=== PATIENT | male | born 1985 | race Asian ===

== ENCOUNTER 2022-09-29 03:23 | Inpatient (IN) | payer MEDICAID ==
[~2022-09-29] VITALS: Ht 172.7 cm; Wt 136.2 kg
[2022-09-29] MEDS ORDERED: IPRATROPIUM BROMIDE 0.5 MG/2.5 ML NEB SOLUTION NEB ONE (03:45)
[2022-09-29] MEDS ORDERED: PredniSONE 20 MG TABLET PO ONE (03:45)
[2022-09-29] MEDS ORDERED: ALBUTEROL SULFATE HFA 90 MCG/PUFF 8 GM INHALER IH ONE (03:45)
[2022-09-29] MEDS ORDERED: ALBUTEROL SULFATE 2.5 MG/0.5 ML NEB SOLUTION NEB ONE (03:45)
[2022-09-29] MEDS ORDERED: ALBU18HF12 IH (03:47)
[2022-09-29] MEDS ORDERED: LOSA-381 PO (03:47)
[2022-09-29] MEDS ORDERED: BUME1TAB6 PO (03:47)
[2022-09-29] MEDS ORDERED: METO-408 PO (03:47)
[2022-09-29] MEDS ORDERED: PRED-554 PO (04:07)
[2022-09-29 04:45] LABS: COVID AG,FIA SOURCE NASOPHARYNGEAL
[2022-09-29] MEDS ORDERED: BUMETANIDE 0.25 MG/ML 4 ML VIAL IVP ONE (04:45)
[2022-09-29 04:49] LABS: BASOPHILS % (AUTO) 0.9 % (0.0-2.0); EOSINOPHILS % (AUTO) 1.6 % (1.0-6.0); HEMATOCRIT 45.9 % (41-53); HEMOGLOBIN 14.8 g/dL (13.5-17.5); LYMPHOCYTES # (AUTO) 1.4 K/uL (1.0-4.8); LYMPHOCYTES % (AUTO) 14.7 % (22.0-44.0); MEAN CORPUSCULAR HEMOGLOBIN 27.2 pg (26.0-34.0); MEAN CORPUSCULAR HGB CONC 32.2 G/dL (31.0-37.0); MEAN CORPUSCULAR VOLUME 85 fL (80-100); MONOCYTES % (AUTO) 9.9 % (2.0-9.0); NEUTROPHILS # (AUTO) 7.2 K/uL (1.8-7.7); NEUTROPHILS % (AUTO) 72.9 % (40.0-70.0); PLATELET COUNT (AUTO) 333 K/uL (150-450); RED BLOOD CELL COUNT(AUTO) 5.44 MIL/uL (4.50-5.90); RED CELL DISTRIBUTION WIDTH 15.8 % (11.5-14.5)
[2022-09-29 04:59] LABS: ANION GAP 12 mmol/L (8-16); CALCIUM, TOTAL 9.1 mg/dL (8.8-10.5); CARBON DIOXIDE 25 mmol/L (22-29); CHLORIDE 102 mmol/L (98-107); GLOMERULAR FILTR. RATE CALC 38 mL/min (>60); GLUCOSE,RANDOM 127 mg/dL (70-110); POTASSIUM 3.9 mmol/L (3.5-5.1); SODIUM SERUM 139 mmol/L (136-145)
[2022-09-29 05:01] LABS: INR 1.2 (0.9-1.1)
[2022-09-29 05:05] LABS: INFLUENZA TYPE A NEGATIVE FOR TYPE A (NEGATIVE); INFLUENZA TYPE B NEGATIVE FOR TYPE B (NEGATIVE)
[2022-09-29 05:06] LABS: ALANINE AMINOTRANSFERASE 22 U/L (12-78); ALBUMIN 3.2 g/dL (3.4-5.0); ALKALINE PHOSPHATASE 81 U/L (46-116); ASPARTATE AMINOTRANSFERASE 24 U/L (15-37); BILIRUBIN,TOTAL 1.2 mg/dL (0.1-1.0); CREATINE KINASE, TOTAL ONLY 152 U/L (39-308); TOTAL PROTEIN, SERUM 7.3 g/dL (6.4-8.2)
[2022-09-29 05:10] LABS: B-TYPE NATRIURETIC PEPTIDE 862 pg/mL (0-100)
[2022-09-29] MEDS ORDERED: ASPIRIN 325 MG TABLET PO ONE (05:15)
[2022-09-29] MEDS ORDERED: ONDANSETRON HCL 4 MG/2 ML VIAL IVP PRN (05:30)
[2022-09-29] MEDS ORDERED: 0.9% SODIUM CHLORIDE 10 ML SYRINGE IVP PRN (05:30)
[2022-09-29] MEDS ORDERED: ACETAMINOPHEN 325 MG TABLET PO PRN (05:30)
[2022-09-29 06:38] LABS: APPEARANCE,URINE CLEAR (CLEAR); BILIRUBIN,URINE NEGATIVE (NEGATIVE); GLUCOSE, URINE (UA) NEGATIVE (NEGATIVE); KETONES,URINE NEGATIVE (NEGATIVE); LEUKOCYTE ESTERASE ,URINE NEGATIVE (NEGATIVE); NITRATE,URINE NEGATIVE (NEGATIVE); OCCULT BLOOD,URINE LARGE (NEGATIVE); PROTEIN,URINE 300-600,SEE CONFIRM mg/dL (NEGATIVE); SPECIFIC GRAVITIY, URINE 1.014 (1.003-1.030); UROBILINOGEN,URINE <=1.0 mg/dL (<=1.0)
[2022-09-29 06:43] LABS: AMPHET/METH SCREEN,URINE POSITIVE (NEGATIVE); BARBITURATE SCREEN, URINE NEGATIVE (NEGATIVE); BENZODIAZEPINES SCREEN,URINE NEGATIVE (NEGATIVE); CANNABINOID SCREEN,URINE NEGATIVE (NEGATIVE); COCAINE SCREEN,URINE NEGATIVE (NEGATIVE); METHADONE SCREEN, URINE NEGATIVE (NEGATIVE); OPIATE SCREEN,URINE NEGATIVE (NEGATIVE); PHENCYCLIDINE SCREEN,URINE NEGATIVE (NEGATIVE)
[2022-09-29 06:54] LABS: SULFOSALICYLIC ACID,URINE 3+ (Negative)
[2022-09-29 06:55] LABS: BACTERIA,URINE None Seen /HPF (None Seen); SQUAMOUS EPITHELIAL CELL,UR Few /LPF (None Seen); WBC,URINE None Seen /HPF (0-5)
[2022-09-29 10:30] VITALS: BP 148/92
[2022-09-29 15:26] VITALS: BP 158/79
[2022-09-29 19:42] VITALS: BP 132/87
[2022-09-29] MEDS ORDERED: GuaiFENesin/D-METHORPHAN [SUGAR-FREE] 200-20MG/10 ML SYRUP UDCUP PO PRN (20:00)
[2022-09-29] MEDS: NICOTINE 14 MG/24 HOUR PATCH TD SCH (22:29)
[2022-09-29 23:14] VITALS: BP 134/81
[2022-09-30 04:55] VITALS: BP 133/100
[2022-09-30] MEDS ORDERED: BUMETANIDE 0.25 MG/ML 4 ML VIAL IVP ONE (05:45)
[2022-09-30] MEDS ORDERED: BISACODYL 10 MG RECTAL RECTAL SUPPOSITORY PR PRN (05:45)
[2022-09-30] MEDS ORDERED: ALBUTEROL SULFATE 2.5 MG/0.5 ML NEB SOLUTION NEB PRN (05:45)
[2022-09-30] MEDS ORDERED: ACETAMINOPHEN 325 MG TABLET PO PRN (05:45)
[2022-09-30] MEDS ORDERED: MAGNESIUM HYDROXIDE SUSPENSION 30 ML UDCUP PO PRN (05:45)
[2022-09-30] MEDS ORDERED: ZOLPIDEM TARTRATE 5 MG TABLET PO PRN (05:45)
[2022-09-30] MEDS ORDERED: ONDANSETRON HCL 4 MG/2 ML VIAL IVP PRN (05:45)
[2022-09-30] MEDS ORDERED: IPRATROPIUM BROMIDE 0.5 MG/2.5 ML NEB SOLUTION NEB PRN (05:45)
[2022-09-30] MEDS ORDERED: MORPHINE SULFATE 2 MG/ML SYRINGE IVP PRN (05:45)
[2022-09-30] MEDS: MethylPREDNISolone SOD SUCC 40 MG/ML VIAL IVP SCH ×4 (05:57→23:21)
[2022-09-30 07:03] LABS: BASOPHILS % (AUTO) 0.8 % (0.0-2.0); EOSINOPHILS % (AUTO) 1.4 % (1.0-6.0); HEMOGLOBIN 14.3 g/dL (13.5-17.5); LYMPHOCYTES # (AUTO) 1.6 K/uL (1.0-4.8); LYMPHOCYTES % (AUTO) 18.8 % (22.0-44.0); MEAN CORPUSCULAR HGB CONC 31.9 G/dL (31.0-37.0); MEAN CORPUSCULAR VOLUME 85 fL (80-100); MONOCYTES # (AUTO) 0.9 K/uL (0.1-1.0); MONOCYTES % (AUTO) 10.6 % (2.0-9.0); NEUTROPHILS # (AUTO) 5.8 K/uL (1.8-7.7); NEUTROPHILS % (AUTO) 68.4 % (40.0-70.0); PLATELET COUNT (AUTO) 350 K/uL (150-450); RED BLOOD CELL COUNT(AUTO) 5.32 MIL/uL (4.50-5.90); RED CELL DISTRIBUTION WIDTH 15.6 % (11.5-14.5)
[2022-09-30 07:28] LABS: BILIRUBIN,TOTAL 0.8 mg/dL (0.1-1.0); CALCIUM, TOTAL 8.8 mg/dL (8.8-10.5); CREATININE 1.96 mg/dL (0.60-1.30); POTASSIUM 3.6 mmol/L (3.5-5.1); TOTAL PROTEIN, SERUM 7.2 g/dL (6.4-8.2)
[2022-09-30] MEDS: HYDROCODONE/ACETAMINOPHEN 5-325 MG TABLET PO PRN ×4 (08:17→23:21)
[2022-09-30] MEDS: HEPARIN SODIUM,PORCINE 5,000 UNITS/ML VIAL SQ SCH ×3 (08:17→23:21)
[2022-09-30] MEDS: LOSARTAN POTASSIUM 25 MG TABLET PO SCH (08:18)
[2022-09-30] MEDS: DOCUSATE SODIUM 100 MG CAPSULE PO SCH ×2 (08:18→21:17)
[2022-09-30] MEDS: BUMETANIDE 0.25 MG/ML 4 ML VIAL IVP SCH ×2 (08:18→22:59)
[2022-09-30] MEDS: NICOTINE 14 MG/24 HOUR PATCH TD SCH (08:18)
[2022-09-30] MEDS: PANTOPRAZOLE SODIUM 40 MG/VIAL IVP SCH (08:18)
[2022-09-30] MEDS: METOPROLOL SUCCINATE 25 MG ER TABLET PO SCH (08:18)
[2022-09-30 08:29] VITALS: BP 138/90
[2022-09-30 11:27] VITALS: BP 125/91
[2022-09-30 15:40] VITALS: BP 129/92
[2022-09-30] MEDS: GuaiFENesin/D-METHORPHAN [SUGAR-FREE] 200-20MG/10 ML SYRUP UDCUP PO PRN ×2 (17:57→23:23)
[2022-09-30 19:35] VITALS: BP 121/55
[2022-10-01 00:04] VITALS: BP 125/90
[2022-10-01 05:01] VITALS: BP 128/83
[2022-10-01] MEDS: MethylPREDNISolone SOD SUCC 40 MG/ML VIAL IVP SCH ×4 (05:32→23:49)
[2022-10-01 07:26] VITALS: BP 132/82
[2022-10-01] MEDS: HYDROCODONE/ACETAMINOPHEN 5-325 MG TABLET PO PRN ×4 (08:25→23:31)
[2022-10-01] MEDS: PANTOPRAZOLE SODIUM 40 MG/VIAL IVP SCH (08:26)
[2022-10-01] MEDS: DOCUSATE SODIUM 100 MG CAPSULE PO SCH ×2 (08:26→20:29)
[2022-10-01] MEDS: METOPROLOL SUCCINATE 25 MG ER TABLET PO SCH (08:26)
[2022-10-01] MEDS: LOSARTAN POTASSIUM 25 MG TABLET PO SCH (08:26)
[2022-10-01] MEDS: BUMETANIDE 0.25 MG/ML 4 ML VIAL IVP SCH ×2 (08:26→20:29)
[2022-10-01] MEDS: HEPARIN SODIUM,PORCINE 5,000 UNITS/ML VIAL SQ SCH ×3 (08:26→23:49)
[2022-10-01] MEDS: NICOTINE 14 MG/24 HOUR PATCH TD SCH (08:26)
[2022-10-01] MEDS: GuaiFENesin/D-METHORPHAN [SUGAR-FREE] 200-20MG/10 ML SYRUP UDCUP PO PRN ×2 (08:27→20:28)
[2022-10-01 11:34] VITALS: BP 128/87
[2022-10-01 15:18] VITALS: BP 126/82
[2022-10-01 19:35] VITALS: BP 124/84
[2022-10-01 21:21] LABS: BASOPHILS % (AUTO) 0.9 % (0.0-2.0); EOSINOPHILS % (AUTO) 0 % (1.0-6.0); HEMATOCRIT 44.7 % (41-53); HEMOGLOBIN 14.1 g/dL (13.5-17.5); LYMPHOCYTES # (AUTO) 0.4 K/uL (1.0-4.8); LYMPHOCYTES % (AUTO) 2.6 % (22.0-44.0); MEAN CORPUSCULAR HEMOGLOBIN 26.8 pg (26.0-34.0); MEAN CORPUSCULAR HGB CONC 31.5 G/dL (31.0-37.0); MEAN CORPUSCULAR VOLUME 85 fL (80-100); MONOCYTES # (AUTO) 0.6 K/uL (0.1-1.0); MONOCYTES % (AUTO) 3.5 % (2.0-9.0); PLATELET COUNT (AUTO) 358 K/uL (150-450); RED BLOOD CELL COUNT(AUTO) 5.26 MIL/uL (4.50-5.90)
[2022-10-01 21:31] LABS: CALCIUM, TOTAL 8.7 mg/dL (8.8-10.5); CREATININE 2.23 mg/dL (0.60-1.30); POTASSIUM 4.1 mmol/L (3.5-5.1)
[2022-10-01 21:37] LABS: ALBUMIN 3.2 g/dL (3.4-5.0); BILIRUBIN,TOTAL 0.7 mg/dL (0.1-1.0); TOTAL PROTEIN, SERUM 7.5 g/dL (6.4-8.2)
[2022-10-01] MEDS ORDERED: SODIUM CHLORIDE 0.9% 50 ML ONE (23:27)
[2022-10-01] MEDS: CefTRIAXone 1 GM/DEXTROSE 50 ML IV SCH (23:33)
[2022-10-02 00:15] VITALS: BP 100/66
[2022-10-02 04:40] VITALS: BP 108/59
[2022-10-02] MEDS: MethylPREDNISolone SOD SUCC 40 MG/ML VIAL IVP SCH ×4 (05:25→23:19)
[2022-10-02 07:43] VITALS: BP 127/80
[2022-10-02] MEDS: PANTOPRAZOLE SODIUM 40 MG/VIAL IVP SCH (08:17)
[2022-10-02] MEDS: HEPARIN SODIUM,PORCINE 5,000 UNITS/ML VIAL SQ SCH ×3 (08:17→23:19)
[2022-10-02] MEDS: HYDROCODONE/ACETAMINOPHEN 5-325 MG TABLET PO PRN ×4 (08:18→23:19)
[2022-10-02] MEDS: DOCUSATE SODIUM 100 MG CAPSULE PO SCH ×2 (08:18→19:35)
[2022-10-02] MEDS: METOPROLOL SUCCINATE 25 MG ER TABLET PO SCH (08:18)
[2022-10-02] MEDS: BUMETANIDE 1 MG TABLET PO SCH (08:18)
[2022-10-02] MEDS: LOSARTAN POTASSIUM 25 MG TABLET PO SCH (08:18)
[2022-10-02] MEDS: NICOTINE 14 MG/24 HOUR PATCH TD SCH (08:19)
[2022-10-02] MEDS: GuaiFENesin/D-METHORPHAN [SUGAR-FREE] 200-20MG/10 ML SYRUP UDCUP PO PRN ×3 (08:20→19:36)
[2022-10-02 10:56] VITALS: BP 124/78
[2022-10-02 15:08] VITALS: BP 128/80
[2022-10-02 15:48] LABS: EOSINOPHILS % (AUTO) 0.2 % (1.0-6.0); HEMATOCRIT 45.7 % (41-53); HEMOGLOBIN 14.3 g/dL (13.5-17.5); LYMPHOCYTES # (AUTO) 0.4 K/uL (1.0-4.8); LYMPHOCYTES % (AUTO) 2.4 % (22.0-44.0); MEAN CORPUSCULAR HEMOGLOBIN 26.6 pg (26.0-34.0); MEAN CORPUSCULAR HGB CONC 31.4 G/dL (31.0-37.0); MEAN CORPUSCULAR VOLUME 85 fL (80-100); MONOCYTES # (AUTO) 0.6 K/uL (0.1-1.0); MONOCYTES % (AUTO) 3.5 % (2.0-9.0); NEUTROPHILS # (AUTO) 16.7 K/uL (1.8-7.7); NEUTROPHILS % (AUTO) 93.9 % (40.0-70.0); PLATELET COUNT (AUTO) 218 K/uL (150-450); RED BLOOD CELL COUNT(AUTO) 5.39 MIL/uL (4.50-5.90); RED CELL DISTRIBUTION WIDTH 16.3 % (11.5-14.5)
[2022-10-02 16:02] LABS: CALCIUM, TOTAL 8.8 mg/dL (8.8-10.5); CREATININE 2.18 mg/dL (0.60-1.30); POTASSIUM 4.2 mmol/L (3.5-5.1)
[2022-10-02 16:06] LABS: BILIRUBIN,TOTAL 0.7 mg/dL (0.1-1.0)
[2022-10-02 19:55] VITALS: BP 121/74
[2022-10-02] MEDS: CefTRIAXone 1 GM/DEXTROSE 50 ML IV SCH (23:19)
[2022-10-03 00:33] VITALS: BP 139/78
[2022-10-03 01:44] LABS: APPEARANCE,URINE CLEAR (CLEAR); BILIRUBIN,URINE NEGATIVE (NEGATIVE); GLUCOSE, URINE (UA) NEGATIVE (NEGATIVE); KETONES,URINE NEGATIVE (NEGATIVE); LEUKOCYTE ESTERASE ,URINE NEGATIVE (NEGATIVE); NITRATE,URINE NEGATIVE (NEGATIVE); OCCULT BLOOD,URINE NEGATIVE (NEGATIVE); PH,URINE 5.5 (5.0-8.0); PROTEIN,URINE 30-70 mg/dL (NEGATIVE); UROBILINOGEN,URINE <=1.0 mg/dL (<=1.0)
[2022-10-03 02:16] LABS: CREATININE,URINE RANDOM 105.3 mg/dL (30.0-125.0); PROTEIN,URINE RANDOM 64 mg/dL (0-11.9); SODIUM,URINE RANDOM 24 mmol/l (20-110); UREA NITROGEN,URINE RANDOM 1278 mg/dL (350-1000)
[2022-10-03 05:02] VITALS: BP 114/87
[2022-10-03] MEDS: MethylPREDNISolone SOD SUCC 40 MG/ML VIAL IVP SCH ×3 (05:50→18:18)
[2022-10-03 07:09] LABS: BASOPHILS % (AUTO) 0.1 % (0.0-2.0); EOSINOPHILS % (AUTO) 0 % (1.0-6.0); HEMATOCRIT 46.2 % (41-53); HEMOGLOBIN 14.5 g/dL (13.5-17.5); LYMPHOCYTES # (AUTO) 0.5 K/uL (1.0-4.8); MEAN CORPUSCULAR HEMOGLOBIN 26.6 pg (26.0-34.0); MEAN CORPUSCULAR HGB CONC 31.4 G/dL (31.0-37.0); MEAN CORPUSCULAR VOLUME 85 fL (80-100); MONOCYTES # (AUTO) 0.5 K/uL (0.1-1.0); MONOCYTES % (AUTO) 2.8 % (2.0-9.0); NEUTROPHILS # (AUTO) 15.8 K/uL (1.8-7.7); PLATELET COUNT (AUTO) 358 K/uL (150-450); RED BLOOD CELL COUNT(AUTO) 5.45 MIL/uL (4.50-5.90); RED CELL DISTRIBUTION WIDTH 16.2 % (11.5-14.5)
[2022-10-03 07:14] LABS: NEUTROPHILS % (AUTO) 94.1 % (40.0-70.0)
[2022-10-03 07:37] LABS: ALBUMIN 3.1 g/dL (3.4-5.0); BILIRUBIN,TOTAL 0.6 mg/dL (0.1-1.0); CALCIUM, TOTAL 8.5 mg/dL (8.8-10.5); CREATININE 1.87 mg/dL (0.60-1.30); POTASSIUM 4.3 mmol/L (3.5-5.1); TOTAL PROTEIN, SERUM 7.2 g/dL (6.4-8.2)
[2022-10-03 08:00] LABS: MAGNESIUM 2.6 mg/dL (1.80-2.40); PHOSPHORUS 4.1 mg/dL (2.5-4.9)
[2022-10-03] MEDS: HEPARIN SODIUM,PORCINE 5,000 UNITS/ML VIAL SQ SCH ×3 (08:00→23:29)
[2022-10-03 08:16] VITALS: BP 113/75
[2022-10-03] MEDS: NICOTINE 14 MG/24 HOUR PATCH TD SCH (08:17)
[2022-10-03] MEDS: LOSARTAN POTASSIUM 25 MG TABLET PO SCH (08:19)
[2022-10-03] MEDS: DOCUSATE SODIUM 100 MG CAPSULE PO SCH ×2 (08:19→19:43)
[2022-10-03] MEDS: BUMETANIDE 1 MG TABLET PO SCH (08:19)
[2022-10-03] MEDS: PANTOPRAZOLE SODIUM 40 MG/VIAL IVP SCH (08:20)
[2022-10-03] MEDS: METOPROLOL SUCCINATE 25 MG ER TABLET PO SCH (08:20)
[2022-10-03] MEDS: GuaiFENesin/D-METHORPHAN [SUGAR-FREE] 200-20MG/10 ML SYRUP UDCUP PO PRN ×2 (08:44→19:43)
[2022-10-03] MEDS: HYDROCODONE/ACETAMINOPHEN 5-325 MG TABLET PO PRN ×2 (08:56→21:48)
[2022-10-03 11:18] VITALS: BP 110/71
[2022-10-03 15:07] VITALS: BP 119/60
[2022-10-03 20:40] VITALS: BP 122/67
[2022-10-03] MEDS ORDERED: ROPINIRole HCL 0.25 MG TABLET PO SCH (21:00)
[2022-10-03] MEDS: CefTRIAXone 1 GM/DEXTROSE 50 ML IV SCH (23:29)
[2022-10-04] MEDS ORDERED: MethylPREDNISolone SOD SUCC 125 MG/2 ML VIAL IVP SCH
[2022-10-04 00:55] VITALS: BP 119/64
[2022-10-04 05:45] VITALS: BP 104/65
[2022-10-04] MEDS ORDERED: MethylPREDNISolone SOD SUCC 40 MG/ML VIAL IVP SCH (06:00)
[2022-10-04 06:50] LABS: BASOPHILS % (AUTO) 0.1 % (0.0-2.0); EOSINOPHILS % (AUTO) 0 % (1.0-6.0); HEMATOCRIT 47.1 % (41-53); HEMOGLOBIN 14.9 g/dL (13.5-17.5); LYMPHOCYTES # (AUTO) 0.6 K/uL (1.0-4.8); LYMPHOCYTES % (AUTO) 3.5 % (22.0-44.0); MEAN CORPUSCULAR HEMOGLOBIN 26.6 pg (26.0-34.0); MEAN CORPUSCULAR HGB CONC 31.6 G/dL (31.0-37.0); MEAN CORPUSCULAR VOLUME 84 fL (80-100); MONOCYTES # (AUTO) 0.6 K/uL (0.1-1.0); MONOCYTES % (AUTO) 3.7 % (2.0-9.0); NEUTROPHILS # (AUTO) 14.8 K/uL (1.8-7.7); PLATELET COUNT (AUTO) 374 K/uL (150-450); RED BLOOD CELL COUNT(AUTO) 5.58 MIL/uL (4.50-5.90); RED CELL DISTRIBUTION WIDTH 15.9 % (11.5-14.5)
[2022-10-04 06:55] LABS: NEUTROPHILS % (AUTO) 92.7 % (40.0-70.0)
[2022-10-04 07:04] LABS: ALBUMIN 3.1 g/dL (3.4-5.0); BILIRUBIN,TOTAL 0.5 mg/dL (0.1-1.0); CALCIUM, TOTAL 8.5 mg/dL (8.8-10.5); CREATININE 1.99 mg/dL (0.60-1.30); POTASSIUM 4.4 mmol/L (3.5-5.1); TOTAL PROTEIN, SERUM 7.3 g/dL (6.4-8.2)
[2022-10-04 07:23] VITALS: BP 133/77
[2022-10-04] MEDS: NICOTINE 14 MG/24 HOUR PATCH TD SCH (07:47)
[2022-10-04] MEDS: DOCUSATE SODIUM 100 MG CAPSULE PO SCH (07:48)
[2022-10-04] MEDS: PANTOPRAZOLE SODIUM 40 MG/VIAL IVP SCH (07:48)
[2022-10-04] MEDS: LOSARTAN POTASSIUM 25 MG TABLET PO SCH (07:49)
[2022-10-04] MEDS: HEPARIN SODIUM,PORCINE 5,000 UNITS/ML VIAL SQ SCH (07:49)
[2022-10-04] MEDS: BUMETANIDE 1 MG TABLET PO SCH (07:49)
[2022-10-04] MEDS: METOPROLOL SUCCINATE 25 MG ER TABLET PO SCH (07:55)
[2022-10-04] MEDS: GuaiFENesin/D-METHORPHAN [SUGAR-FREE] 200-20MG/10 ML SYRUP UDCUP PO PRN (07:55)
[2022-10-04] MEDS ORDERED: PredniSONE 20 MG TABLET PO ONE (08:45)
[2022-10-04] MEDS ORDERED: ROPINIRole HCL 0.25 MG TABLET PO SCH (09:00)
[2022-10-04 11:51] VITALS: BP 129/75
[2022-10-04] MEDS ORDERED: ROPI0.2535 PO (11:56)
[2022-10-05] MEDS ORDERED: CEFD300C18 PO (11:49)
[2022-10-05] MEDS ORDERED: FAMO20 PO (11:51)
== END 2022-10-04 14:00 | disposition home or self-care (01) | DRG 141 ==
LOC: EMS 03:23 → 5S 05:27
PROVIDERS: ADMIT Hospitalist; ATTEND Hospitalist
DX: J45.901 Unspecified asthma with (acute) exacerbation (principal); I50.23 Acute on chronic systolic (congestive) heart failure; I31.39 Other pericardial effusion (noninflammatory); I13.0 Hypertensive heart and chronic kidney disease with heart failure and stage 1 through stage 4 chronic kidney disease, or unspecified chronic kidney disease; D72.829 Elevated white blood cell count, unspecified; Z20.822 Contact with and (suspected) exposure to COVID-19; F15.10 Other stimulant abuse, uncomplicated; N28.9 Disorder of kidney and ureter, unspecified; G25.81 Restless legs syndrome; R73.9 Hyperglycemia, unspecified; N18.32 Chronic kidney disease, stage 3b; T38.0X5A Adverse effect of glucocorticoids and synthetic analogues, initial encounter; Z59.00 Homelessness unspecified; Y92.89 Other specified places as the place of occurrence of the external cause; Z91.148 Patient's other noncompliance with medication regimen for other reason; Z79.899 Other long term (current) drug therapy
CPT/HCPCS: 71045; 71250; 76770; 80053; 80307; 81001; 81002; 81003; 82043; 82550; 82570; 83735; 83880; 84100; 84156; 84300; 84484; 84540; 85025; 85610; 85730; 87804; 93005; 93306; 94060; 94640; 99291; C9113; G0480; J0696; J1644; J2920; J2930; J3490; J3535; J7050; 36415-L1; 36415-TC; J7613